=== PATIENT | male | born 1990 | race Two or more races ===

== ENCOUNTER 2016-08-09 12:50 | Emergency (ER) | payer OTHER ==
[~2016-08-09] VITALS: Ht 185.4 cm; Wt 76.7 kg
[2016-08-09 15:08] VITALS: BP 121/75
== END 2016-08-09 15:09 | disposition home or self-care (01) ==
LOC: ED 14:47
DX: G44.219 Episodic tension-type headache, not intractable (principal)
CPT/HCPCS: 70450